=== PATIENT | female | born 1950 | race Caucasian/White ===

== ENCOUNTER 2018-10-04 12:27 | Emergency (ER) | payer MEDICARE, OTHER ==
[~2018-10-04] VITALS: Ht 172.7 cm; Wt 85.0 kg
[2018-10-04 12:32] VITALS: BP 135/64
[2018-10-04] MEDS ORDERED: ipratropium/albuterol 3ml nebule NEB ONE (12:45)
[2018-10-04] MEDS ORDERED: predniSONE 20 mg tablet PO ONE (12:45)
[2018-10-04] MEDS ORDERED: GUAI120015 PO (13:15)
[2018-10-04] MEDS ORDERED: LEVO500T2 PO (13:15)
[2018-10-04] MEDS ORDERED: ALBU6.7H INH (13:15)
[2018-10-04] MEDS ORDERED: PRED20TA PO (13:15)
== END 2018-10-04 13:41 | disposition home or self-care (01) ==
LOC: ER 12:27
DX: J18.1 Lobar pneumonia, unspecified organism (principal); Z79.899 Other long term (current) drug therapy; Z79.2 Long term (current) use of antibiotics
CPT/HCPCS: 71046; 94640; 94760; 99283; J7512

== ENCOUNTER 2019-05-14 15:05 | Emergency (ER) | payer MEDICARE ==
[~2019-05-14] VITALS: Ht 172.7 cm; Wt 80.5 kg
[~2019-05-14 15:05] MED LIST: ALBU6.7H9 INH; GUAI120015 PO
[2019-05-14] MEDS ORDERED: TETanus/Pertussis (Acell)/Diphther VAC/PF (Tdap-Adult) 0.5ml syringe IM ONE (15:20)
[2019-05-14] MEDS ORDERED: LIDOcaine 1% w/epiNEPHrine 1:200,000 30ml vial IM ONE (15:20)
--- NOTE | 2019-05-14 15:29 | NUR ---
PT TO CT
[2019-05-14] MEDS ORDERED: normal saline 1000ML IV soln IVB ONE (15:55)
[2019-05-14 16:22] LABS: ALANINE AMINOTRANSFERASE 22 U/L (12-78); ALBUMIN 3.5 G/DL (3.4-5.0); ALBUMIN/GLOBULIN RATIO 1.2 (1.1-1.5); ALKALINE PHOSPHATASE 68 IU/L (46-116); ANION GAP 7 (8-16); ASPARTATE AMINO TRANSFERASE 11 U/L (10-37); BASOPHILS # (AUTO) 0.1 X10'3 (0-0.2); BASOPHILS % (AUTO) 0.8 % (0-1); BILIRUBIN,TOTAL 0.4 MG/DL (0.1-1.0); BLOOD UREA NITROGEN 20 MG/DL (7-18); BUN/CREATININE RATIO 15.2 (6.6-38.0); CALCIUM 8.8 MG/DL (8.5-10.1); CHLORIDE 109 MMOL/L (99-107); CREATININE 1.32 MG/DL (0.40-0.90); EOSINOPHILS # (AUTO) 0.1 X10'3 (0-0.9); EOSINOPHILS % (AUTO) 1.9 % (0-6); GLUCOSE 89 MG/DL (70-104); HEMATOCRIT 41.9 % (35.0-45.0); HEMOGLOBIN 13.9 g/dl (12.0-16.0); LYMPHOCYTES # (AUTO) 2.3 X10'3 (1.1-4.8); LYMPHOCYTES % (AUTO) 29.2 % (21-51); MEAN CORPUSCULAR HEMOGLOBIN 29.6 PG (27.0-31.0); MEAN CORPUSCULAR HGB CONC 33.2 g/dL (33.0-36.5); MEAN CORPUSCULAR VOLUME 89.2 FL (78-98); MEAN PLATELET VOLUME 7.6 FL (7.4-10.4); MONOCYTES # (AUTO) 0.6 X10'3 (0-0.9); MONOCYTES % (AUTO) 7.3 % (2-12); NEUTROPHILS # (AUTO) 4.7 X10'3 (1.8-7.7); NEUTROPHILS % (AUTO) 60.8 % (42-75); PLATELET COUNT 270 X10'3 (140-440); POTASSIUM 3.8 MMOL/L (3.5-5.1); RED BLOOD COUNT 4.69 X10'6 (4.20-5.60); RED CELL DISTRIBUTION WIDTH 14.4 % (11.5-14.5); SODIUM 145 MMOL/L (135-145); TOTAL CARBON DIOXIDE 28.8 MMOL/L (24-32); TOTAL PROTEIN 6.4 G/DL (6.4-8.2); WHITE BLOOD COUNT 7.8 X10'3 (4.5-11.0); eGFR 40 ML/MIN
[2019-05-14 16:41] VITALS: BP 107/49
== END 2019-05-14 16:45 | disposition short-term general hospital (02) ==
LOC: ER 15:06
DX: S06.6X0A Traumatic subarachnoid hemorrhage without loss of consciousness, initial encounter (principal); S01.81XA Laceration without foreign body of other part of head, initial encounter; Z79.899 Other long term (current) drug therapy; W18.39XA Other fall on same level, initial encounter; Y93.89 Activity, other specified; Y92.512 Supermarket, store or market as the place of occurrence of the external cause; Y99.8 Other external cause status
CPT/HCPCS: 12014; 36415; 70450; 71045; 80053; 85025; 85610; 90471; 90715; 93005; 99291; J7030; 12053

== ENCOUNTER 2023-11-29 15:05 | Emergency (ER) | payer MEDICARE ==
[~2023-11-29] VITALS: Ht 175.3 cm; Wt 82.4 kg
[~2023-11-29 15:05] MED LIST changes: +ALBU6.7H14 INH; -ALBU6.7H9 INH
[2023-11-29 15:16] VITALS: BP 109/63; PULSE 65; TEMP 98.3; O2SAT 94
[2023-11-29 15:23] LABS: BASOPHILS % (AUTO) 0.4 % (0-1); EOSINOPHILS # (AUTO) 0.2 X10'3 (0-0.9); EOSINOPHILS % (AUTO) 3.6 % (0-6); HEMATOCRIT 41.2 % (35.0-45.0); HEMOGLOBIN 13.9 g/dl (12.0-16.0); LYMPHOCYTES # (AUTO) 2.2 X10'3 (1.1-4.8); LYMPHOCYTES % (AUTO) 38.5 % (21-51); MEAN CORPUSCULAR HEMOGLOBIN 29.9 PG (27.0-31.0); MEAN CORPUSCULAR HGB CONC 33.6 g/dL (33.0-36.5); MEAN CORPUSCULAR VOLUME 88.9 FL (78-98); MEAN PLATELET VOLUME 8.3 FL (7.4-10.4); MONOCYTES # (AUTO) 0.5 X10'3 (0-0.9); MONOCYTES % (AUTO) 8.7 % (2-12); NEUTROPHILS # (AUTO) 2.8 X10'3 (1.8-7.7); NEUTROPHILS % (AUTO) 48.8 % (42-75); PLATELET COUNT 229 X10'3 (140-440); RED BLOOD COUNT 4.64 X10'6 (4.20-5.60); WHITE BLOOD COUNT 5.8 X10'3 (4.5-11.0)
[2023-11-29 15:39] LABS: ALANINE AMINOTRANSFERASE 28 U/L (12-78); ALBUMIN 3.1 G/DL (3.4-5.0); ALKALINE PHOSPHATASE 91 IU/L (46-116); ANION GAP 7 (8-16); ASPARTATE AMINO TRANSFERASE 26 U/L (10-37); BILIRUBIN,TOTAL 0.4 MG/DL (0.1-1.0); BLOOD UREA NITROGEN 18 MG/DL (7-18); BUN/CREATININE RATIO 14.9 (10.0-20.0); CALCIUM 8.4 MG/DL (8.5-10.1); CHLORIDE 107 MMOL/L (99-107); CREATININE 1.21 MG/DL (0.40-0.90); GLUCOSE 116 MG/DL (70-104); POTASSIUM 3.8 MMOL/L (3.5-5.1); SODIUM 142 MMOL/L (135-145); TOTAL PROTEIN 6.3 G/DL (6.4-8.2); eCRCL 44 ML/MIN; eGFR 44 ML/MIN
[2023-11-29 15:46] LABS: PRO BRAIN NATRIURETIC PEPTIDE 163 PG/ML (0-125)
[2023-11-29] MEDS ORDERED: ALBU8HFA INH (19:28)
[2023-11-29] MEDS ORDERED: PROM473S4 PO (19:28)
[2023-11-29] MEDS ORDERED: CIPR500T5 PO (19:28)
[2023-11-29] MEDS ORDERED: PRED10TA23 PO (19:28)
[2023-11-29 19:45] VITALS: RESP 15
[2023-11-29] MEDS: dexamethasone sod phosphate 10mg/ml inj IM STA (19:45)
[2023-11-29] MEDS: ketorolac trometh inj. 60 MG/2 ML VIAL IM ONE (19:45)
== END 2023-11-29 20:00 | disposition home or self-care (01) ==
LOC: ER 15:06
DX: J20.9 Acute bronchitis, unspecified (principal); Z20.822 Contact with and (suspected) exposure to COVID-19; R05.9 Cough, unspecified; Z79.899 Other long term (current) drug therapy
CPT/HCPCS: 36415; 71045; 80053; 83880; 84484; 85025; 87502; 87503; 87811; 93005; 96372; 99285; J1100; J1885

== ENCOUNTER 2024-03-14 06:27 | Day surgery (SDC) | payer MEDICARE ==
[~2024-03-14] VITALS: Ht 175.3 cm; Wt 84.0 kg
[2024-03-14] MEDS ORDERED: LOSA50TA64 PO (06:43)
[2024-03-14] MEDS ORDERED: FLUO40CA PO (06:43)
[2024-03-14] MEDS ORDERED: ALBUTEROL (06:43)
[2024-03-14] MEDS ORDERED: LEVO100T9 PO (06:43)
[2024-03-14] MEDS ORDERED: METO25TA6 PO (06:43)
[2024-03-14 06:51] VITALS: BP 100/54; PULSE 57; RESP 17
[2024-03-14] MEDS ORDERED: LIDOcaine 2% Viscous 15ml cup ONE (07:43)
[2024-03-14] MEDS ORDERED: fentaNYL/PF 50MCG/1 ML 2ML syringe ONE (07:44)
[2024-03-14] MEDS ORDERED: MIDAZolam 1 MG/ML 5ML VIAL ONE (07:44)
[2024-03-14 08:07] VITALS: BP_SYST 9; BP_SYST 91; BP_DIAS 50; PULSE 55; RESP 17; O2SAT 92
[2024-03-14 08:17] VITALS: BP 92/57; PULSE 54; RESP 17; O2SAT 96
[2024-03-14 08:27] VITALS: BP 110/63; PULSE 59; RESP 14; O2SAT 99
[2024-03-14 08:37] VITALS: BP 102/71; PULSE 55; RESP 16; O2SAT 97
== END 2024-03-14 08:45 | disposition home or self-care (01) ==
LOC: GI LAB 06:27
PROVIDERS: ATTEND Surgery
DX: K44.9 Diaphragmatic hernia without obstruction or gangrene (principal); K29.70 Gastritis, unspecified, without bleeding; K20.90 Esophagitis, unspecified without bleeding
CPT/HCPCS: 43239; A4620; G0500; J2250; J3010; J7030; Z7512; 99152

== ENCOUNTER 2024-04-04 06:25 | Observation (INO) | payer MEDICARE ==
[2024-03-28 14:00] LABS: BASOPHILS % (AUTO) 0.6 % (0-1); EOSINOPHILS # (AUTO) 0.2 X10'3 (0-0.9); EOSINOPHILS % (AUTO) 3.1 % (0-6); HEMATOCRIT 41.3 % (35.0-45.0); HEMOGLOBIN 13.7 g/dl (12.0-16.0); LYMPHOCYTES # (AUTO) 2.7 X10'3 (1.1-4.8); LYMPHOCYTES % (AUTO) 37.2 % (21-51); MEAN CORPUSCULAR HEMOGLOBIN 28.9 PG (27.0-31.0); MEAN CORPUSCULAR HGB CONC 33.1 g/dL (33.0-36.5); MEAN CORPUSCULAR VOLUME 87.2 FL (78-98); MEAN PLATELET VOLUME 7.9 FL (7.4-10.4); MONOCYTES # (AUTO) 0.5 X10'3 (0-0.9); MONOCYTES % (AUTO) 6.4 % (2-12); NEUTROPHILS # (AUTO) 3.9 X10'3 (1.8-7.7); NEUTROPHILS % (AUTO) 52.7 % (42-75); PLATELET COUNT 274 X10'3 (140-440); RED BLOOD COUNT 4.73 X10'6 (4.20-5.60); RED CELL DISTRIBUTION WIDTH 14.5 % (11.5-14.5); WHITE BLOOD COUNT 7.3 X10'3 (4.5-11.0)
[2024-03-28 14:07] LABS: ALANINE AMINOTRANSFERASE 22 U/L (12-78); ALBUMIN 3.4 G/DL (3.4-5.0); ALBUMIN/GLOBULIN RATIO 1.1 (1.1-1.5); ALKALINE PHOSPHATASE 67 IU/L (46-116); ANION GAP 4 (8-16); ASPARTATE AMINO TRANSFERASE 12 U/L (10-37); BILIRUBIN,TOTAL 0.4 MG/DL (0.1-1.0); BLOOD UREA NITROGEN 24 MG/DL (7-18); BUN/CREATININE RATIO 19.8 (10.0-20.0); CALCIUM 8.8 MG/DL (8.5-10.1); CHLORIDE 107 MMOL/L (99-107); CREATININE 1.21 MG/DL (0.40-0.90); GLUCOSE 95 MG/DL (70-104); POTASSIUM 4.1 MMOL/L (3.5-5.1); SODIUM 141 MMOL/L (135-145); TOTAL PROTEIN 6.4 G/DL (6.4-8.2); eGFR 44 ML/MIN
[~2024-04-04] VITALS: Ht 175.3 cm; Wt 83.7 kg
[2024-04-04] VITALS (20 sets, daily range): BP systolic 119–168; BP diastolic 67–95; PULSE 53–100; RESP 13–16; TEMP 96.8–98.1; O2SAT 92–100
[2024-04-04] MEDS: cefazolin 2gm/D5W 100mL 100 ML IV ONE (05:30)
[~2024-04-04 06:25] MED LIST changes: -ALBU6.7H14 INH; +FLUO40CA PO; -GUAI120015 PO; +LEVO100T9 PO; +LOSA50TA64 PO; +METO25TA6 PO; +OMEP40CA21 PO
[2024-04-04] MEDS: famotidine 20mg tablet PO ONE (07:18)
[2024-04-04] MEDS: ringers solution, lacted 1,000 ML IV SCH (07:18)
[2024-04-04] MEDS ORDERED: morphine 4 MG/ML inj SYRINge IV PRN (09:00)
[2024-04-04] MEDS ORDERED: ringers solution, lacted 1,000 ML IV SCH ×2 (09:00→12:05)
[2024-04-04] MEDS ORDERED: ondansetron/PF 4mg/2ml inj IV PRN ×2 (09:00→12:05)
[2024-04-04] MEDS ORDERED: proCHLORperazine 10 MG/2 ml inj IV PRN (09:00)
[2024-04-04] MEDS ORDERED: meperidine/PF 25mg/ml syringe IV PRN ×3 (09:00)
[2024-04-04] MEDS ORDERED: morphine 2 MG/ML inj. syringe IV PRN (09:00)
[2024-04-04] MEDS ORDERED: sevoflurane 250ml liquid IH ONE (09:06)
[2024-04-04] MEDS ORDERED: midazolam 1 mg/ML 2ml injection ONE (09:10)
[2024-04-04] MEDS ORDERED: rocuronium 10mg/ml inj IV ONE (09:10)
[2024-04-04] MEDS ORDERED: fentaNYL/PF 50MCG/1 ML 2ML syringe ONE (09:10)
[2024-04-04] MEDS ORDERED: propofol inj 20 ML IV ONE (09:10)
[2024-04-04] MEDS: BUPIVAcaine/PF 2.5 mg/ml (0.25%) 30ml vial IJ ONE (09:33)
[2024-04-04] MEDS ORDERED: ondansetron/PF 4mg/2ml inj ONE (11:38)
[2024-04-04] MEDS ORDERED: acetaminophen 1,000mg/100ml IV 100 ML IV ONE (11:38)
[2024-04-04] MEDS ORDERED: dexamethasone sod phosphate 4mg/ml inj. ONE (11:38)
[2024-04-04] MEDS ORDERED: neostigmine methylsulfate 1 MG/ML 10ml vial ONE (11:47)
[2024-04-04] MEDS ORDERED: glycopyrrolate 0.2mg/ml inj ONE (11:48)
[2024-04-04] MEDS ORDERED: naloxone 0.4 mg/ml inj IV PRN (12:05)
[2024-04-04] MEDS: HYDROmorph/NS 0.2 mg/ml PCA 100 ML IV SCH (12:05)
[2024-04-04] MEDS ORDERED: normal saline 1000ml 1,000 ML IV SCH (12:05)
[2024-04-04] MEDS: labetalol 20mg/4ml (5mg/ml) syringe IV PRN (14:09)
[2024-04-05 06:00] VITALS: BP 136/68; PULSE 68; RESP 16; TEMP 97.5; O2SAT 97
[2024-04-05] MEDS: losartan 50mg tablet PO SCH (08:00)
[2024-04-05] MEDS: LIDOcaine 1% 30ml preserv. free vial ONE (08:48)
[2024-04-05] MEDS: DOCUMENT DATE & TIME OF BETA-BLOCKER PO ONE (08:48)
[2024-04-05] MEDS: BUPIVAcaine/PF 2.5mg/ml (0.25%) 10ml vial ONE (08:48)
[2024-04-05 08:55] VITALS: RESP 16; O2SAT 92
[2024-04-05] MEDS: metoprolol tartrate 25mg tablet PO SCH (09:00)
[2024-04-05] MEDS: levoTHYROXINE 100mcg tablet PO SCH (09:00)
[2024-04-05] MEDS: FLUoxetine 20mg capsule PO SCH (09:00)
[2024-04-05] MEDS ORDERED: oxyCODONE/APAP 5-325mg tablet PO ONE (09:05)
[2024-04-05] MEDS ORDERED: PER5325T PO (09:09)
[2024-04-05 10:00] VITALS: BP 129/74; PULSE 67; RESP 17; TEMP 98.4; O2SAT 93
[2024-04-05] MEDS: PCA WASTE DOCUMENTATION 1 MG ML MC SCH (10:19)
[2024-04-05 13:21] VITALS: RESP 20
[2024-04-05] MEDS: oxyCODONE/APAP 5-325mg tablet PO PRN (13:21)
== END 2024-04-05 16:00 | disposition home or self-care (01) ==
LOC: PAS 06:25 → ORTHO 4S 12:03 → UNDOADMOB 12:03 → ORTHO 4S 12:08
PROVIDERS: ADMIT Surgery; ATTEND Surgery
DX: K44.9 Diaphragmatic hernia without obstruction or gangrene (principal); E89.0 Postprocedural hypothyroidism; Z79.899 Other long term (current) drug therapy
CPT/HCPCS: 36415; 43282; 71045; 80053; 82948; 85025; 96374; C1781; G0378; J0131; J0690; J1100; J1170; J2250; J2405; J2704; J2710; J3010; J3490; J7040; J7120; A4615; A4618

== ENCOUNTER 2024-08-05 11:51 | Emergency (ER) | payer MEDICARE ==
[~2024-08-05] VITALS: Ht 172.7 cm; Wt 78.5 kg
[~2024-08-05 11:51] MED LIST changes: -OMEP40CA21 PO; +PER5325T PO
[2024-08-05 12:00] VITALS: BP 102/55; PULSE 70; O2SAT 97
[2024-08-05 12:25] VITALS: RESP 16
[2024-08-05] MEDS ORDERED: NIRM1TAB7 PO (12:51)
[2024-08-05 13:04] VITALS: TEMP 98.7
== END 2024-08-05 13:05 | disposition home or self-care (01) ==
LOC: ER 11:52
DX: U07.1 COVID-19 (principal); Z79.899 Other long term (current) drug therapy
CPT/HCPCS: 99281; 99283

== ENCOUNTER 2024-12-14 05:36 | Day surgery (SDC) | payer MEDICARE ==
[2024-12-07 11:23] LABS: BASOPHILS % (AUTO) 0.6 % (0-1); EOSINOPHILS # (AUTO) 0.1 X10'3 (0-0.9); EOSINOPHILS % (AUTO) 2.8 % (0-6); LYMPHOCYTES # (AUTO) 1.8 X10'3 (1.1-4.8); LYMPHOCYTES % (AUTO) 33.2 % (21-51); MEAN CORPUSCULAR HEMOGLOBIN 29.7 PG (27.0-31.0); MEAN CORPUSCULAR HGB CONC 33.1 g/dL (33.0-36.5); MEAN CORPUSCULAR VOLUME 89.8 FL (78-98); MEAN PLATELET VOLUME 7.7 FL (7.4-10.4); MONOCYTES # (AUTO) 0.3 X10'3 (0-0.9); MONOCYTES % (AUTO) 6.5 % (2-12); NEUTROPHILS # (AUTO) 3.1 X10'3 (1.8-7.7); NEUTROPHILS % (AUTO) 56.9 % (42-75); PRE OP HEMOGLOBIN 12.6 g/dL (12.0-16.0); PRE OP PLATELET COUNT 259 X10'3 (140-440); PRE OP WHITE BLOOD COUNT 5.4 10'3 (4.8-10.8); RED BLOOD COUNT 4.23 X10'6 (4.20-5.60); RED CELL DISTRIBUTION WIDTH 13.8 % (11.5-14.5)
[2024-12-07 12:12] LABS: ALBUMIN 3.2 G/DL (3.4-5.0); ALBUMIN/GLOBULIN RATIO 1.1 (1.1-1.5); ALKALINE PHOSPHATASE 77 IU/L (46-116); BLOOD UREA NITROGEN 19 MG/DL (7-18); CALCIUM 8.6 MG/DL (8.5-10.1); CHLORIDE 109 MMOL/L (99-107); CREATININE 0.95 MG/DL (0.40-0.90); PRE OP ALT 21 U/L (30-65); PRE OP ANION GAP 7 (8-16); PRE OP AST 14 U/L (10-37); PRE OP BILIRUB, TOTAL 0.6 MG/DL (0.0-1.0); PRE OP GLUCOSE 92 MG/DL (70-104); PRE OP POTASSIUM 4.2 MMOL/L (3.4-5.1); PRE OP SODIUM 144 MMOL/L (135-145); TOTAL CARBON DIOXIDE 28.3 MMOL/L (24-32); TOTAL PROTEIN 6.1 G/DL (6.4-8.2); eGFR 58 ML/MIN
[~2024-12-14] VITALS: Ht 175.3 cm; Wt 74.8 kg
[2024-12-14] VITALS (8 sets, daily range): BP systolic 109–135; BP diastolic 58–77; PULSE 53–69; RESP 12–16; TEMP 97.3; O2SAT 93–99
[~2024-12-14 05:36] MED LIST changes: +DOCUMENT DATE & TIME OF BETA-BLOCKER PO ONE; +OMEP40CA21 PO; -PER5325T PO
[2024-12-14] MEDS: famotidine 20mg tablet PO ONE (06:12)
[2024-12-14] MEDS: ringers solution, lacted 1,000 ML IV SCH (06:13)
[2024-12-14] MEDS: ceFAZolin 2gm in dextrose, iso 50 ML IV ONE (06:14)
[2024-12-14] MEDS ORDERED: morphine 4 MG/ML inj SYRINge IV PRN (07:20)
[2024-12-14] MEDS ORDERED: ondansetron/PF 4mg/2ml inj IV PRN (07:20)
[2024-12-14] MEDS ORDERED: ringers solution, lacted 1,000 ML IV SCH (07:20)
[2024-12-14] MEDS ORDERED: labetalol 20mg/4ml (5mg/ml) syringe IV PRN (07:20)
[2024-12-14] MEDS ORDERED: morphine 2 MG/ML inj. syringe IV PRN (07:20)
[2024-12-14] MEDS ORDERED: fentaNYL/PF 50MCG/1 ML 2ML syringe ONE (07:22)
[2024-12-14] MEDS ORDERED: midazolam 1 mg/ML 2ml injection ONE (07:23)
[2024-12-14] MEDS ORDERED: propofol inj 20 ML IV ONE (07:25)
[2024-12-14] MEDS ORDERED: LIDOcaine 2% (20mg/ml) 5ml vial ONE (07:25)
[2024-12-14] MEDS ORDERED: succinylcholine 20mg/ml inj IV ONE (07:25)
[2024-12-14] MEDS ORDERED: ondansetron/PF 4mg/2ml inj ONE (07:25)
[2024-12-14] MEDS ORDERED: desflurane 240ml liquid inh. IH ONE (07:50)
== END 2024-12-14 13:06 | disposition home or self-care (01) ==
LOC: PAS 05:36
PROVIDERS: ATTEND Surgery
DX: R13.10 Dysphagia, unspecified (principal); K21.00 Gastro-esophageal reflux disease with esophagitis, without bleeding; K44.9 Diaphragmatic hernia without obstruction or gangrene; E03.9 Hypothyroidism, unspecified; I10 Essential (primary) hypertension; Z98.890 Other specified postprocedural states; Z79.899 Other long term (current) drug therapy; Z85.850 Personal history of malignant neoplasm of thyroid
CPT/HCPCS: 36415; 43239; 80053; 82948; 85025; 88305; 93005; A4618; J0330; J0690; J1100; J2003; J2250; J2405; J2704; J3010; J7120; Z7506; Z7512; Z7610